=== PATIENT | female | born 1970 | race Caucasian/White ===

== ENCOUNTER 2021-06-07 12:24 | Emergency (ER) | payer OTHER ==
[~2021-06-07] VITALS: Ht 149.9 cm; Wt 50.8 kg
--- NOTE | 2021-06-07 12:54 | NUR ---
Dr Tsai at the bedside for MSE.
[2021-06-07 12:55] LABS: *BILIRUBIN,URIN NEGATIVE (NEGATIVE); *BLOOD, URINE NEGATIVE (NEGATIVE); *CLARITY,URINE CLEAR (CLEAR); *COLOR,URINE YELLOW (YELLOW); *KETONES,URINE NEGATIVE (NEGATIVE); *UROBILINOGEN,URINE 0.2 E.U./dl (NORMAL); LEUKOCYTE ESTERASE ,URINE NEGATIVE (NEGATIVE); NITRITE, URINE NEGATIVE (NEGATIVE); PH,URINE 5.5 (5.0-8.0); UGLUCOSE NEGATIVE (NEGATIVE)
[2021-06-07 13:22] LABS: HEMATOCRIT 36.3 % (31.2-41.9); MEAN CORPUSCULAR HEMOGLOBIN 32.5 uug (24.7-32.8); MEAN CORPUSCULAR VOLUME 93.7 fL (75.5-95.3); PLATELET COUNT (AUTO) 302 K/uL (179-408)
[2021-06-07 13:31] LABS: CREATININE 0.7 mg/dL (0.6-1.3); POTASSIUM 3.6 mmol/L (3.5-5.1)
[2021-06-07 13:37] LABS: BILIRUBIN,DIRECT 0.1 mg/dL (0.0-0.2); BILIRUBIN,TOTAL 0.5 mg/dL (0.2-1.0); TOTAL PROTEIN, SERUM 7.2 g/dL (6.4-8.2)
--- NOTE | 2021-06-07 13:37 | NUR ---
Female science instructor accompanied female patient for ([employer]).
[2021-06-07] MEDS ORDERED: PHEN-705 PO (13:45)
[2021-06-07] MEDS ORDERED: FLUC150T PO (13:45)
--- NOTE | 2021-06-07 14:05 | NUR ---
Patient discharged to home in stable condition. Written and verbal after care instructions given. Patient verbalizes understanding of instructions. Stressed follow up or return to ER for worsening s/s.
[2021-06-07 14:06] VITALS: BP 101/60
== END 2021-06-07 14:07 | disposition home or self-care (01) ==
LOC: ER 12:24
DX: R30.0 Dysuria (principal); E11.9 Type 2 diabetes mellitus without complications; Z79.4 Long term (current) use of insulin; Z87.440 Personal history of urinary (tract) infections; E78.00 Pure hypercholesterolemia, unspecified
CPT/HCPCS: 36415; 76770; 76856; 83690; 85025; 87086; A4663